=== PATIENT | male | born 1945 | race Caucasian/White ===

== ENCOUNTER 2018-05-23 08:09 | Outpatient (CLI) | payer MEDICARE ==
[2018-05-23 10:00] LABS: #Eosinphils 0.2 thou/uL (0.0-0.7); #Lymphocytes 1.7 thou/uL (1.20-3.40); #Monocytes 0.6 thou/uL (0.11-0.59); #Neutrophils 4.2 thou/uL (1.40-6.50); %Basophils 0.3 % (0.0-1.0); %Eosinophils 2.3 % (0.0-10.0); %Lymphocytes 25.6 % (21.0-51.0); %Monocytes 9.6 % (0.0-10.0); %Neutrophils 62.3 % (42.0-75.0); Hemoglobin 14.6 g/dL (14.0-18.0); Mean Corpuscular Volume 97.1 fL (78.0-98.0); Mean Platelet Volume 7.6 fL (7.4-10.4); Platelet Count 160 thou/uL (130-400); RBC Distribution Width 11.7 % (11.5-14.5); Red Blood Cell (RBC) Count 4.42 mill/uL (4.70-6.10); White Blood Cell (WBC) Count 6.7 thou/uL (4.8-10.8)
[2018-05-23 10:05] LABS: Prothrombin Time 12.9 SEC (12.0-14.7)
[2018-05-23 10:06] LABS: PTT 34.2 SEC (22.9-36.1)
[2018-05-23 10:20] LABS: Bilirubin Negative (Negative); Blood, Urine Negative (Negative); Clarity CLEAR (Clear); Glucose, Urine (Dipstick) 500 mg/dL (Negative); Leukocyte Negative (Negative); Nitrite Negative (Negative); Protein, Urine (Dipstick) Negative (Neg-Trace); Urobilinogen 0.2 mg/dL (0.2-1.0)
--- NOTE | 2018-05-23 10:20 | RAD ---
CHEST 2 VIEWS: History Preop. FINDINGS: No comparison. Cardiac silhouette and pulmonary vasculature are unremarkable. Mediastinum is midlin e. No lobar consolidation or evidence of pneumothorax. Calcified granulomata are consistent with he aled granulomatous disease. IMPRESSION: No acute cardiopulmonary abnormalities are demonstrated. POS: [facility]
[2018-05-23 10:21] LABS: Anion Gap 12 mmol/L (10-20); BUN (Urea Nitrogen) 17 mg/dL (8.4-25.7); Calc. Creatinine Clearance 0 mL/min (70-130); Calcium 9.1 mg/dL (7.8-10.44); Carbon Dioxide 25 mmol/L (23-31); Chloride 105 mmol/L (98-107); Estimated GFR-MDRD 85; Glucose 193 mg/dL (80-115); Potassium 4.2 mmol/L (3.5-5.1); Sodium 138 mmol/L (136-145)
[2018-05-23 10:23] LABS: Bacteria/HPF None Seen HPF (None Seen); Hyaline Casts/LPF 0-3 HYALINE CAST LPF (0-3 Hyaline); Pathc Cast-AUWi Flag 0.29 (0-2.49); RBC/HPF 0-3 HPF (0-3); Squamous Epithelial None Seen HPF (0-3); WBC/HPF 0-3 HPF (0-3)
== END 2018-05-23 08:10 | disposition home or self-care (01) ==
LOC: LABBT 08:09
PROVIDERS: ATTEND Urology
DX: Z01.818 Encounter for other preprocedural examination (principal); R97.20 Elevated prostate specific antigen [PSA]
CPT/HCPCS: 71046; 80048; 81001; 85025; 85610; 85730; 87086; 93005; 93010

== ENCOUNTER 2018-06-06 05:35 | Day surgery (SDC) | payer MEDICARE ==
[2018-05-23 08:48] VITALS: BMI 31.7
[2018-06-06] MEDS ORDERED: Sodium Chloride 0.9% 100 ML ONE (07:01)
[2018-06-06] MEDS ORDERED: cefTRIAXone\\ROCEPHIN 1 GM VIAL ONE (07:01)
[2018-06-06] MEDS ORDERED: Levofloxacin 500 mg/D5W 100 ml Premix Bag ONE (07:02)
[2018-06-06] MEDS ORDERED: Fentanyl 100 MCG/2 ML VIAL ONE ×2 (07:50)
[2018-06-06] MEDS ORDERED: Oxymetazoline HCl 0.05% ( 15 ML ) ONE (07:50)
[2018-06-06] MEDS ORDERED: Phenazopyridine HCl 97.5 MG TABLET ONE (09:44)
--- NOTE | 2018-06-06 10:33 | OP ---
DATE OF PROCEDURE: 06/06/2018 PREOPERATIVE DIAGNOSES: 1. A 72-year-old male with history of elevated PSA of 4.5, unremarkable JONATHON. 2. History of benign prostatic hypertrophy with obstructive urinary symptoms on Flomax b.i.d. POSTOPERATIVE DIAGNOSES: 1. A 72-year-old male with history of elevated PSA 4.5, unremarkable JONATHON. 2. History of benign prostatic hypertrophy with obstructive urinary symptoms on Flomax b.i.d. PROCEDURE: Flexible cystoscopy, transrectal ultrasound prostate biopsy 12 needle core. SURGEON: Chitra Mills D.O. ANESTHESIA: LMA. COMPLICATIONS: None apparent. SPECIMEN: Twelve core needle prostate biopsy. INTRAOPERATIVE FINDINGS: 1. Cystoscopy demonstrates moderate BPH due to bilobar hyperplasia, no significant evidence of intravesical median lobe. 2. Bilateral single system ureter. 3. Bilateral ureteral orifices approximately 5-6 mm proximal to the bladder neck. 4. Transrectal ultrasound without evidence of lesion. INDICATIONS FOR THE PROCEDURE AND HISTORY: Mr. Chapman is a 72-year-old male who [place]. He recently relocated from an outside region. He underwent previous cystoscopy for BPH workup. He continues to have obstructive urinary symptoms, has a postvoid residual of approximately 84 mL on our initial consultation. He is on Flomax b.i.d. The patient has been cleared by his video clerk to proceed with prostate biopsy with cessation of Plavix, has been transitioned to baby aspirin. Risks and complications including, but not limited to, bleeding, pain, infection, urosepsis, chronic pain, urinary retention and hematuria, hematospermia, blood per rectum requiring secondary procedure reviewed with patient in detail and he desired to proceed. DESCRIPTION OF THE PROCEDURE: After an informed consent is signed, the patient is taken to the operating room, placed in a supine position with the genital area prepped and draped in the usual surgical sterile fashion. A flexible cystoscopy was utilized. Broad-spectrum antibiotics were provided. Flexible cystoscopy demonstrated normal anterior and posterior urethra. The prostatic urethra demonstrated bilobar hyperplasia, moderately obstructing with no evidence of intravesical median lobe. The patient does have a left duplicated ureter on CT and upon entering the bladder, it appeared to have bilateral single system ureters. Left UO is somewhat more patulous than right UO. The UO' s are approximately 5-6 mm proximal to the bladder neck. No bladder lesion was appreciated. At this time, the cystoscope was removed and we did empty his bladder. Subsequently, the patient was placed in the left lateral decubitus position with pressure points padded and protected. A transrectal ultrasound probe was then placed, we measured the prostate demonstrating urethral length of 4.4, width of 5.5, height of 3.5 for a volume of 45.9 grams. No lesions were seen. At this time, a 12 core needle biopsy in a standard template was performed without significant issues. He tolerated the procedure well and transported to the recovery room in stable condition. He is advised to stay off his Plavix until followup appointment, he may take baby aspirin due to history of coronary artery disease. Continue Flomax b.i.d. He is discharged with ciprofloxacin for 3 days. NELSON
[2018-06-06] MEDS ORDERED: Lidocaine 1% PF 5 ML VIAL ONE (15:18)
[2018-06-06] MEDS ORDERED: Metoclopramide HCl 10 MG/2 ML VIAL ONE (15:18)
[2018-06-06] MEDS ORDERED: PROPOFOL 200 MG/20 ML VIAL ONE (15:18)
[2018-06-06] MEDS ORDERED: PHENYLEPHRINE-NS 100 MCG/ML 10 ML SYRINGE ONE ×2 (15:18)
[2018-06-06] MEDS ORDERED: Ondansetron HCl/PF 4 MG/2 ML Vial ONE (15:18)
== END 2018-06-06 11:55 | disposition home or self-care (01) ==
LOC: SDC 05:35
PROVIDERS: ATTEND Urology
PROC: 0VB03ZX Excision of Prostate, Percutaneous Approach, Diagnostic (ICD-10-PCS; principal; 2018-06-06)
PROC: 0TJB8ZZ Inspection of Bladder, Via Natural or Artificial Opening Endoscopic (ICD-10-PCS; 2018-06-06)
DX: C61 Malignant neoplasm of prostate (principal); E78.5 Hyperlipidemia, unspecified; I10 Essential (primary) hypertension; E11.9 Type 2 diabetes mellitus without complications; Z87.891 Personal history of nicotine dependence; Z79.02 Long term (current) use of antithrombotics/antiplatelets; Z79.899 Other long term (current) drug therapy
CPT/HCPCS: 88305; J0131; J0696; J1956; J2001; J2405; J2704; J2765; J3010; J7050

== ENCOUNTER 2018-08-14 08:39 | Outpatient (CLI) | payer MEDICARE ==
--- NOTE | 2018-08-14 10:32 | ULT ---
ULTRASOUND SCROTUM TESTICLES DOPPLER DUPLEX: HISTORY: N50.82 scrotal pain. TECHNIQUE: Griffin-scale evaluation of intrascrotal contents. Color flow Doppler and spectral waveform analysis of the testicles. FINDINGS: At the inferior aspect of the left scrotum, there is a varicocele (change in blood flow between valsa lva and release, of dilated, tortuous veins). In the contralateral right side, there is a varicocele at the groin. Bilateral testicles are normal in size and echogenicity. No solid mass lesion is identified. Bilatera l epididymal heads are within normal limits in size. No hydrocele. Symmetrical blood flow demonstrate d in both testicles. IMPRESSION: Bilateral varicoceles. ASAEL Moise POS: [facility]
== END 2018-08-14 08:40 | disposition home or self-care (01) ==
LOC: BICULT 08:39
PROVIDERS: ATTEND Urology
DX: N50.82 Scrotal pain (principal); R35.0 Frequency of micturition; I86.1 Scrotal varices; Z87.440 Personal history of urinary (tract) infections
CPT/HCPCS: 76870; 93976

== ENCOUNTER 2018-09-27 10:01 | Outpatient (CLI) | payer MEDICARE ==
[2018-09-27 11:56] LABS: Bilirubin Negative (Negative); Blood, Urine Negative (Negative); Clarity CLEAR (Clear); Glucose, Urine (Dipstick) Negative (Negative); Leukocyte Small (Negative); Nitrite Negative (Negative); PTT 32.5 SEC (22.9-36.1); Protein, Urine (Dipstick) Negative (Neg-Trace); Prothrombin Time 13.7 SEC (12.0-14.7); Specific Gravity, Urine 1.019 (1.002-1.036)
[2018-09-27 11:59] LABS: Bacteria/HPF None Seen HPF (None Seen); Hyaline Casts/LPF 0-3 HYALINE CAST LPF (0-3 Hyaline); RBC/HPF 0-3 HPF (0-3); Squamous Epithelial None Seen HPF (0-3); WBC/HPF 0-3 HPF (0-3)
== END 2018-09-27 10:02 | disposition home or self-care (01) ==
LOC: LABBT 10:01
PROVIDERS: ATTEND Urology
DX: Z01.818 Encounter for other preprocedural examination (principal); C61 Malignant neoplasm of prostate
CPT/HCPCS: 81001; 85610; 85730; 87086

== ENCOUNTER 2018-09-28 13:00 | Inpatient (IN) | payer MEDICARE ==
[2018-09-27 10:25] VITALS: BMI 32.1
[2018-10-10] MEDS ORDERED: KETAMINE 100 MG/ML (5ML VIAL) ONE (06:39)
[2018-10-10] MEDS ORDERED: Fentanyl 250 MCG/5 ML VIAL ONE (06:39)
[2018-10-10] MEDS ORDERED: Midazolam HCl 2 mg/2 ml Vial ONE (06:39)
[2018-10-10] MEDS ORDERED: Fentanyl 100 MCG/2 ML VIAL ONE ×2 (06:39→15:49)
[2018-10-10] MEDS ORDERED: Vecuronium 10 MG VIAL ONE ×2 (06:40→10:15)
[2018-10-10] MEDS ORDERED: Albumin 5% 500 ML ONE (06:40)
[2018-10-10] MEDS ORDERED: Phenylephrine HCL 10 MG/ML VIAL ONE (06:40)
[2018-10-10] MEDS ORDERED: Levofloxacin 500 mg/D5W 100 ml Premix Bag ONE (06:54)
[2018-10-10] MEDS ORDERED: Insulin Regular 300 UNITS/3 ML VIAL ONE (07:01)
[2018-10-10] MEDS ORDERED: ceFOXitin 1 GM VIAL ONE ×2 (08:10→14:09)
[2018-10-10] MEDS ORDERED: Metoclopramide HCl 10 MG/2 ML VIAL ONE (10:15)
[2018-10-10] MEDS ORDERED: Glycopyrrolate 0.2 MG/ML 5 ML SYRINGE ONE (10:15)
[2018-10-10] MEDS ORDERED: Ondansetron PF 4 MG/2 ML Vial ONE ×3 (10:15→14:46)
[2018-10-10] MEDS ORDERED: Dexamethasone 20 MG/5 ML VIAL ONE (10:15)
[2018-10-10] MEDS ORDERED: Lidocaine 1% PF 5 ML VIAL ONE (10:15)
[2018-10-10] MEDS ORDERED: Naloxone HCl 0.4 mg/ml Vial ONE (10:15)
[2018-10-10] MEDS ORDERED: PHENYLEPHRINE-NS 100 MCG/ML 10 ML SYRINGE ONE (10:15)
[2018-10-10] MEDS ORDERED: PROPOFOL 200 MG/20 ML VIAL ONE (10:15)
[2018-10-10] MEDS ORDERED: HYDROmorphone 2 MG/ML VIAL SLOW IVP PRN (14:19)
[2018-10-10] MEDS ORDERED: Promethazine HCl 25 MG/ML VIAL IM PRN (14:19)
[2018-10-10] MEDS ORDERED: Meperidine HCl/PF 25 MG/ML VIAL SLOW IVP PRN (14:19)
[2018-10-10] MEDS ORDERED: Promethazine HCl 25 MG/ML VIAL SLOW IVP PRN (14:19)
[2018-10-10] MEDS ORDERED: B & O ONE ×2 (14:58→15:00)
[2018-10-10] MEDS ORDERED: Zolpidem Tartrate 5 MG TAB PO PRN (15:28)
[2018-10-10] MEDS ORDERED: Acetaminophen 500 MG TAB PO PRN (15:28)
[2018-10-10] MEDS ORDERED: Dextrose 50% Abboject 50 ML SYRINGE SLOW IVP PRN (15:28)
[2018-10-10] MEDS ORDERED: HYDROcodone/Acetaminophen 10/325 mg Tablet PO PRN (15:28)
[2018-10-10] MEDS ORDERED: diphenhydrAMINE 50 MG/ML VIAL IVP PRN (15:28)
[2018-10-10] MEDS ORDERED: Morphine 4 MG/ML VIAL SLOW IVP PRN ×2 (15:28→16:00)
[2018-10-10] MEDS ORDERED: hydrALAZINE 20 MG/ML VIAL SLOW IVP PRN ×2 (15:28)
[2018-10-10] MEDS ORDERED: Dextrose 5% in Water 1,000 ML IV PRN (15:28)
[2018-10-10] MEDS ORDERED: Mag-Al 1200 mg/1200 mg/30 ML UDCUP PO PRN (15:28)
[2018-10-10] MEDS ORDERED: Sodium Chloride 0.9% 1,000 ML IV SCH (15:30)
[2018-10-10 16:27] LABS: #Lymphocytes 0.7 thou/uL (1.20-3.40); #Monocytes 0.5 thou/uL (0.11-0.59); #Neutrophils 11.5 thou/uL (1.40-6.50); %Eosinophils 0.2 % (0.0-10.0); %Lymphocytes 5.2 % (21.0-51.0); %Monocytes 4.2 % (0.0-10.0); %Neutrophils 90.4 % (42.0-75.0); Hemoglobin 14.4 g/dL (14.0-18.0); Mean Corpuscular HGB CONC 33.2 g/dL (32.0-36.0); Mean Corpuscular Hemoglobin 32.7 pg (27.0-31.0); Mean Corpuscular Volume 98.3 fL (78.0-98.0); Mean Platelet Volume 7.5 fL (7.4-10.4); Platelet Count 170 thou/uL (130-400); RBC Distribution Width 12.1 % (11.5-14.5); White Blood Cell (WBC) Count 12.7 thou/uL (4.8-10.8)
[2018-10-10] MEDS ORDERED: Bupivacaine HCl 0.5%/Epinephrine 1:200,000/PF 30 ml Vial ONE (16:44)
[2018-10-10 16:51] LABS: Anion Gap 14 mmol/L (10-20); BUN (Urea Nitrogen) 15 mg/dL (8.4-25.7); Calc. Creatinine Clearance 89 mL/min (70-130); Calcium 8.7 mg/dL (7.8-10.44); Carbon Dioxide 24 mmol/L (23-31); Chloride 106 mmol/L (98-107); Estimated GFR-MDRD 68; Glucose 240 mg/dL (83-110); Potassium 4.8 mmol/L (3.5-5.1); Sodium 139 mmol/L (136-145)
--- NOTE | 2018-10-10 17:04 | OP ---
DATE OF PROCEDURE: 10/10/2018 PRIMARY CARE PHYSICIAN: Dr. Goins. PREOPERATIVE DIAGNOSIS: A 73-year-old male with history of clinical T1c Pedro score 3+4 prostate cancer, PSA 4.5. POSTOPERATIVE DIAGNOSIS: A 73-year-old male with history of clinical T1c Jackson score 3+4 prostate cancer, PSA 4.5. PROCEDURES PERFORMED: Robotic-assisted laparoscopic radical prostatectomy, lysis of adhesions. OPERATIONS PROGRAM MANAGER: Michael Ozuna. ANESTHESIA: General. COMPLICATIONS: None apparent. ESTIMATED BLOOD LOSS: 150 mL. IV FLUIDS: 2500 mL and 500 of albumin. DRAINS: An 18-Singaporean 10 mL with 15 mL insufflated to gravity, #20 circular drain. INDICATIONS FOR PROCEDURE AND HISTORY: Mr. Chapman is a 73-year-old male with history of clinical T1c prostate cancer, Pedro 7 (3+4) with presenting PSA of 4.5, unremarkable JONATHON, found to have prostate cancer, presents for robotic-assisted laparoscopic radical prostatectomy. He presents for non-nerve sparing as he has positive perineural invasion on prostate biopsy. Metastatic workup is negative. The patient has been fully informed regarding alternatives of the procedure including active surveillance, watchful waiting, primary radiation therapy, cryotherapy, androgen deprivation therapy, various modality of radiation including brachytherapy. As he has pre-existing obstructive urinary symptoms, he desired to proceed with robotic-assisted laparoscopic radical prostatectomy. Possible conversion to open, as he has had multiple abdominal surgeries and prior history of UTI was reviewed with him in detail. Risks and complications including, but not limited to, bleeding, pain, infection, injury to adjacent organs, urosepsis, rectal injury requiring diverting colostomy, ureteral injury, urinary incontinence, PE, DVT, perioperative morbidity, mortality, chronic pain, neurovascular injury were reviewed with him in detail. All questions were answered to satisfaction and desired to proceed. He has been fully informed regarding possibility of multimodality therapy of margin-positive disease or biochemical recurrence. DESCRIPTION OF PROCEDURE: The patient had been formally identified, and underwent a TAP block in the preoperative area by anesthesia. The patient was then taken to the operating room, placed in supine position. Broad-spectrum antibiotics and bilateral CARROLL hose SCDs were provided. After general endotracheal anesthesia was administered, the patient was placed in supine position and the genital area was formally prepped and draped. He was placed in a modified lithotomy position in approximately 45-degree angle. We made sure that all pressure points were padded and protected at all times. After the patient was formally prepped and draped in the position as above, we used a Veress needle entry to obtain pneumoperitoneum. This was passed without significant issues, and appropriate pressure was obtained at 15 mmHg at a high flow low pressure. We made a 12-mm camera port incision just some underneath the umbilicus with an 11 blade, and the dilating trocar was passed. Surveillance of the intra-abdominal cavity demonstrated no evidence of bowel or vascular injury. He did have adhesions in the right lower quadrant due to his appendicitis. Therefore, we did not place our right robotic port until the adhesions were taken down. We placeed the robot ports on the left side of the abdomen, 8 mm portsx2 were placed under direct visualization. Once the ports were placed, we used EndoShears and bowel graspers to perform lysis of adhesions releasing the bowel contents adherent to the right lower quadrant anterior abdominal cavity. Some of the adhesions were quite dense and sharp dissection to perform lysis of adhesions and dropped the bowel down. At this time, we did place our 11 mm and 15 mm robot arms on the right mid to lower quadrant. a 5-mm port in the right upper quadrant. With all ports placed, the robot was docked. Laparoscopy at this time demonstrated the bowel contacts that were released demonstrated no evidence of bowel injury. We then retracted the bowel cephalad with the third robotic arm and approached the prostate in a posterior approach. The rectovesical pouch was identified. The area was quite narrow despite his wide pelvis. Using monopolar and bipolar instruments, we developed the posterior plane identifying the vas deferens bilaterally. He did have a significant amount of fat in this region, there was some venous oozing which was cauterized appropriately. As he had non-nerve sparing, we used cautery energy to mobilize the seminal vesicle and vas. Bilateral vas was divided with monopolar and bipolar energy. The seminal vesicles were sharply dissected and delivered. After the mobilization of the bilateral vas and seminal vesicles, Denonvilliers fascia was developed posteriorly to the level of the mid to apical prostate. At this time we proceeded to mobilize the bladder. He had an obliterated left medial umbilical ligament. Just lateral to right medial umbilical ligament on the , plane for the bladder to be mobilized. The pubic arch was identified. This was carried down to the medial side. As left lateral median umbilical ligament region as it was obliterated., We opened at the level symmetric to the right medial ligament. This was taken down again developing a pubic arch inferiorly. The bladder was then completely dropped after we divided the medial ligament with bipolar energy. The bladder was then completely mobilized and dropped, and we developed the endopelvic fascia. Using bipolar [place] and monopolar scissors, we sharply and bluntly developed the endopelvic fascia, releasing the levator ani muscle off the lateral aspect of the prostate. The puboprostatic ligament was identified and isolated. This was divided with bipolar energy and scissors. After appropriate mobilization of the endopelvic fascia and the puboprostatic ligament divided; using robotic stapler, dorsal vein complex was stapled with good hemostasis. There was minor backbleeding, however , this was minimal. He did have significant preprostatic fat. This was developed using our bipolar and monopolar energy and sent as a specimen. The area of the bladder neck was identified and using monopolar scissors, we developed the prostate-vesicle junction. His prostate was moderate in size, we did enter the prostate-vesicle junction at the level of the bladder neck. Therefore, a bladder neck sparing was not performed. We identified the bladder neck appropriately, and developed a good bladder neck tissue. His bladder neck was somewhat wide, however, not significantly wide enough to be of concern. At this time, the prostate-vesicle junction was completely divided using monopolar and bipolar energy, obtaining hemostasis of the lateral pedicles. The seminal vesicles and the vas deferens were then retracted that we developed our posterior approach through the anterior aspect of our division of the prostate-vesicle junction. The lateral pedicles of the prostate were then further divided using a vessel sealer. Care was taken not to use the vessel sealer at the level of the apex of the prostate. By dividing the lateral attachments, we were able to mobilize the apical prostate off the rectum more cephalad. We used vessel sealer toward the mid prostate and toward the apex of the prostate, used bipolar and scissors to divide the apex of the prostate off the rectum. The dorsal vein complex was then formally divided using bipolar and monopolar scissors. The urethra was sharply developed. The urethra was then transected identifying the Wadsworth. The rectal urethralis muscle was somewhat adherent; however, using sharp dissection, we mobilized off the rectum. With the prostate completely divided, it was left in the left upper quadrant for retrieval at a later point. There was some venous oozing from the lateral pedicle regions; although, a taxpeq-pg-pnnzo stitch was placed with 2-0 Vicryl. At this time, we reconstructed our bladder neck using 2-0 Vicryl on a SH needle. Using a zektxu-xq-hujty, we closed the bladder neck. After one ydpafw-qb-fukce stitch, the bladder neck was patent enough and wide enough to perform our vesicourethral anastomosis. 2-0 Vicryl on a SH needle was passed to perform a Will stitch reapproximating our bladder neck to the rectal urethralis aligning our urethra to the bladder neck. Using a 2-0 V-Loc stitch, we reapproximated the urethra in a continuous fashion. An 18-Singaporean Wadsworth catheter was able to be passed without any resistance, and 15 mL of sterile water was insufflated. We leak tested the anastomosis, which demonstrated no obvious leak of concern. Floseal was placed prior to performing our anastomosis at the level of the lateral pedicles on top of the rectum well away from our anastomosis and the bladder neck. Floseal was then placed at the level of the urethrovesical junction. A # 20 circular drain was placed through our 8-mm robotic port. Specimen was delivered through an EndoCatch and delivered through our camera port. The fascia of our camera port and specimen delivery were closed with 2-0 Vicryl in a figure-of- eight fashion, and skin of the camera port delivery site, fascia was closed of the camera port using 2-0 Vicryl in a niyqts-hl-kvsuj. Using Brissaon and a 2-0 Vicryl needle, we closed our fascia of the 15 mm and 11 mm assistant department manager port. The skin was closed with 4-0 Maxon in a continuous fashion, and he tolerated the procedure well. Dermabond was placed at the skin site. The patient transported to the recovery room and extubated in stable condition. Job ID: [id number] [facility]
[2018-10-10] MEDS ORDERED: Cyclobenzaprine 10 MG TAB PO SCH (17:30)
[2018-10-10] MEDS: Dextrose 5 % And 0.9 % NaCl 1,000 ML IV SCH (19:02)
[2018-10-10] MEDS: Docusate 100 MG CAP PO SCH (20:42)
[2018-10-10] MEDS: Metoprolol Tartrate 25 MG TAB PO SCH (20:42)
[2018-10-10] MEDS: Famotidine/PF 20 mg/2ml Vial SLOW IVP SCH (20:43)
[2018-10-10] MEDS ORDERED: Famotidine 20 MG TAB PO PRN (21:00)
[2018-10-10] MEDS: Insulin Regular 300 UNITS/3 ML VIAL SC PRN (23:16)
[2018-10-11] MEDS: Dextrose 5 % And 0.9 % NaCl 1,000 ML IV SCH (03:53)
[2018-10-11] MEDS: HYDROcodone/Acetaminophen 10/325 mg Tablet PO PRN ×3 (05:39→16:34)
[2018-10-11] MEDS: Insulin Regular 300 UNITS/3 ML VIAL SC PRN (06:33)
[2018-10-11 06:58] LABS: #Lymphocytes 1.3 thou/uL (1.20-3.40); #Monocytes 1.3 thou/uL (0.11-0.59); #Neutrophils 6.8 thou/uL (1.40-6.50); %Basophils 0.1 % (0.0-1.0); %Eosinophils 0.2 % (0.0-10.0); %Lymphocytes 13.9 % (21.0-51.0); %Monocytes 14.2 % (0.0-10.0); %Neutrophils 71.7 % (42.0-75.0); Hemoglobin 13.6 g/dL (14.0-18.0); Mean Corpuscular HGB CONC 32.5 g/dL (32.0-36.0); Mean Corpuscular Hemoglobin 32.6 pg (27.0-31.0); Mean Platelet Volume 7.6 fL (7.4-10.4); Platelet Count 165 thou/uL (130-400); RBC Distribution Width 12.1 % (11.5-14.5); Red Blood Cell (RBC) Count 4.17 mill/uL (4.70-6.10); White Blood Cell (WBC) Count 9.4 thou/uL (4.8-10.8)
[2018-10-11 07:04] LABS: Anion Gap 11 mmol/L (10-20); BUN (Urea Nitrogen) 9 mg/dL (8.4-25.7); Calc. Creatinine Clearance 114 mL/min (70-130); Calcium 8.6 mg/dL (7.8-10.44); Carbon Dioxide 26 mmol/L (23-31); Chloride 108 mmol/L (98-107); Estimated GFR-MDRD Greater than 90; Glucose 179 mg/dL (83-110); Potassium 4.1 mmol/L (3.5-5.1); Sodium 141 mmol/L (136-145)
[2018-10-11] MEDS ORDERED: Bisacodyl 5 MG TAB PO ONE (08:01)
--- NOTE | 2018-10-11 08:29 | PRG ---
DATE OF SERVICE: 10/11/2018 SUBJECTIVE: The patient resting comfortably, at bedside. Denies nausea or vomiting. States that he has good appetite. No flatus overnight. Has some right shoulder stiffness, however, this is mild. He does relate baseline right shoulder arthritis, which has been present before. Denies numbness/weakness, tingling of the upper or lower extremities. Denies fever or chills. PHYSICAL EXAMINATION: VITAL SIGNS: Stable. His temperature is 97, heart rate 95, respiratory rate 18 , oxygen saturation 93%, blood pressure 121/71. I's and O's; 1970 in and 3150 out. Urine output is siomara with some sediment. p.o. intake 720. DARIO output 40 mL of sanguineous output. GENERAL: The patient is in no acute distress. LUNGS: Clear. ABDOMEN: Soft, protuberant, mildly distended. Incisions are clean, dry, and intact. Bowel sounds are active. EXTREMITIES: No cyanosis, clubbing, or edema. Equal strength and symmetric motion of all extremities. No calf tenderness is appreciated. PERTINENT LABORATORY DATA: White count 9.4, hemoglobin 13.6, platelet 165. BUN 9, creatinine 0.8, sodium 141, and potassium 4.1. IMPRESSION AND PLAN: Mr. Chapman is a 73-year-old male with clinical T1c, Range score 3+4 prostate cancer, postop day #1, robotic assisted laparoscopic radical prostatectomy. The patient is doing well with minimal narcotic use. I will Hep-Lock his IV, PT consultation for walking program, out of bed assist given his age and baseline radiculopathy and arthritis. I did provide him one dose of suppository this morning to stimulate his bowel. The patient advised regarding aggressive mobilization out of bed, dorsi plantar flexion while in bed. will keep the patient on clear liquids for now . will reassess the patient's parameters in the afternoon and consider advancing his diet. Job ID: [id number] [facility]
[2018-10-11] MEDS: glipiZIDE 5 MG TAB PO SCH (08:46)
[2018-10-11] MEDS: metFORMIN 500 MG TAB PO SCH ×2 (08:47→16:35)
[2018-10-11] MEDS: Docusate 100 MG CAP PO SCH ×2 (08:48→21:43)
[2018-10-11] MEDS: Famotidine/PF 20 mg/2ml Vial SLOW IVP SCH (08:48)
[2018-10-11] MEDS: Atorvastatin Calcium 40 MG TAB PO SCH (08:48)
[2018-10-11] MEDS: Lisinopril 5 MG TAB PO SCH (08:48)
[2018-10-11] MEDS: Multivit, Therapeutic 1 TAB PO SCH (08:49)
[2018-10-11] MEDS: Metoprolol Tartrate 25 MG TAB PO SCH ×2 (08:49→21:46)
[2018-10-11] MEDS: Zinc Sulfate 220 MG CAP PO SCH (08:49)
[2018-10-11] MEDS: Famotidine 20 MG TAB PO SCH (21:44)
[2018-10-12] MEDS: HYDROcodone/Acetaminophen 10/325 mg Tablet PO PRN ×2 (02:19→09:10)
[2018-10-12 07:00] LABS: #Eosinphils 0.1 thou/uL (0.0-0.7); #Lymphocytes 1.8 thou/uL (1.20-3.40); %Basophils 0.2 % (0.0-1.0); %Eosinophils 1.3 % (0.0-10.0); %Lymphocytes 20.2 % (21.0-51.0); %Monocytes 11.3 % (0.0-10.0); Hemoglobin 13.4 g/dL (14.0-18.0); Mean Corpuscular HGB CONC 32.2 g/dL (32.0-36.0); Mean Corpuscular Hemoglobin 31.8 pg (27.0-31.0); Mean Corpuscular Volume 98.8 fL (78.0-98.0); Mean Platelet Volume 7.8 fL (7.4-10.4); Platelet Count 168 thou/uL (130-400); RBC Distribution Width 12.2 % (11.5-14.5)
[2018-10-12 07:17] LABS: Anion Gap 11 mmol/L (10-20); BUN (Urea Nitrogen) 10 mg/dL (8.4-25.7); Calc. Creatinine Clearance 120 mL/min (70-130); Calcium 8.7 mg/dL (7.8-10.44); Carbon Dioxide 25 mmol/L (23-31); Chloride 105 mmol/L (98-107); Estimated GFR-MDRD Greater than 90; Glucose 103 mg/dL (83-110); Sodium 137 mmol/L (136-145)
[2018-10-12] MEDS ORDERED: Bisacodyl 10 MG SUPP PR SCH (08:00)
--- NOTE | 2018-10-12 08:34 | PRG ---
DATE OF SERVICE: 10/12/2018 SUBJECTIVE: The patient doing well, pain adequately controlled with Alpine p.r.n. States that the pain is mild. Has good appetite, denies passing flatus thus far. OBJECTIVE: VITAL SIGNS: Stable. He is afebrile. I's and O's; 5890 in and 6395 out. DARIO 120 over the last 24 hours, serosanguineous. Urine output siomara. GENERAL: The patient is in no acute distress. LUNGS: Clear. ABDOMEN: Bowel sounds are active. Incision is clean, dry, and intact with no discharge. No rigidity. No rebound. DARIO adequately secured. Urine output again demonstrating siomara yellow urine. However, when the patient does move, there is a hematuria component. EXTREMITIES: No cyanosis, clubbing, or edema. PERTINENT LABORATORY DATA: White count stable at 9, hemoglobin 13.4, platelet 168. BMP profile is unremarkable. Creatinine 0.79. Pathology is pending. IMPRESSION AND PLAN: Mr. Chapman is a 73-year-old diabetic male, with history of clinical T1c Alma score 3+4 prostate cancer, postop day #2, status post robotic-assisted laparoscopic radical prostatectomy. He is hep-locked, tolerating clears. He has not yet passed flatus, however, has active bowel sounds, will initiate diabetic diet and monitor for tolerance. The patient is encouraged to be out of bed, he has been ambulating without significant issues. He continues to perform dorsi and plantar flexion while in bed with bilateral CARROLL hose SCDs. As there is some evidence of hematuria component from the Wadsworth catheter, I will hold his Lovenox. He is again encouraged to be out of bed aggressively. The patient clinically stable. Discharged when tolerating regular diet, and ideally passing flatus. Job ID: [id number] [facility]
[2018-10-12] MEDS: glipiZIDE 5 MG TAB PO SCH (09:09)
[2018-10-12] MEDS: Zinc Sulfate 220 MG CAP PO SCH (09:10)
[2018-10-12] MEDS: metFORMIN 500 MG TAB PO SCH ×2 (09:15→17:09)
[2018-10-12] MEDS: Famotidine 20 MG TAB PO SCH ×2 (09:16→21:16)
[2018-10-12] MEDS: Docusate 100 MG CAP PO SCH ×2 (09:16→21:16)
[2018-10-12] MEDS: Atorvastatin Calcium 40 MG TAB PO SCH (09:16)
[2018-10-12] MEDS: Multivit, Therapeutic 1 TAB PO SCH (09:16)
[2018-10-12] MEDS: Metoprolol Tartrate 25 MG TAB PO SCH ×2 (09:16→21:15)
[2018-10-12] MEDS: Lisinopril 5 MG TAB PO SCH (09:17)
[2018-10-13 07:17] LABS: #Eosinphils 0.2 thou/uL (0.0-0.7); #Lymphocytes 1.9 thou/uL (1.20-3.40); #Monocytes 0.8 thou/uL (0.11-0.59); #Neutrophils 4.5 thou/uL (1.40-6.50); %Basophils 0.1 % (0.0-1.0); %Eosinophils 2.7 % (0.0-10.0); %Lymphocytes 26.2 % (21.0-51.0); %Monocytes 10.4 % (0.0-10.0); %Neutrophils 60.5 % (42.0-75.0); Hemoglobin 13.4 g/dL (14.0-18.0); Mean Corpuscular HGB CONC 33.4 g/dL (32.0-36.0); Mean Corpuscular Hemoglobin 32.9 pg (27.0-31.0); Mean Corpuscular Volume 98.5 fL (78.0-98.0); Mean Platelet Volume 7.6 fL (7.4-10.4); Platelet Count 165 thou/uL (130-400); RBC Distribution Width 12.2 % (11.5-14.5); Red Blood Cell (RBC) Count 4.08 mill/uL (4.70-6.10); White Blood Cell (WBC) Count 7.4 thou/uL (4.8-10.8)
[2018-10-13 07:40] LABS: Anion Gap 10 mmol/L (10-20); BUN (Urea Nitrogen) 12 mg/dL (8.4-25.7); Calc. Creatinine Clearance 126 mL/min (70-130); Calcium 8.6 mg/dL (7.8-10.44); Carbon Dioxide 30 mmol/L (23-31); Chloride 103 mmol/L (98-107); Estimated GFR-MDRD Greater than 90; Glucose 84 mg/dL (83-110); Potassium 3.7 mmol/L (3.5-5.1); Sodium 139 mmol/L (136-145)
[2018-10-13] MEDS: glipiZIDE 5 MG TAB PO SCH (08:49)
[2018-10-13] MEDS: Multivit, Therapeutic 1 TAB PO SCH (08:51)
[2018-10-13] MEDS: Atorvastatin Calcium 40 MG TAB PO SCH (08:51)
[2018-10-13] MEDS: metFORMIN 500 MG TAB PO SCH (08:51)
[2018-10-13] MEDS: Famotidine 20 MG TAB PO SCH (08:52)
[2018-10-13] MEDS: Docusate 100 MG CAP PO SCH (08:54)
[2018-10-13] MEDS: Lisinopril 5 MG TAB PO SCH (08:54)
[2018-10-13] MEDS: Metoprolol Tartrate 25 MG TAB PO SCH (08:54)
[2018-10-13] MEDS: Zinc Sulfate 220 MG CAP PO SCH (08:55)
[2018-10-13 11:44] VITALS: BP 101/62; TEMP 97.9
--- NOTE | 2018-10-14 03:53 | DIS ---
DATE OF ADMISSION: 10/10/2018 DATE OF DISCHARGE: 10/13/2018 DISPOSITION: Home with good self-care, home health. CONDITION: Stable. DISCHARGE MEDICATIONS: The patient is to resume his diabetic hypertensive medication. May resume his baby aspirin, will hold Plavix until followup appointment. New prescriptions for: 1. Myrbetriq 50 mg one p.o. daily, #30. 2. [place] 5/325 one to two p.o. q.6 to 8 hours p.r.n. for severe pain, #40. 3. Colace 100 mg 1 p.o. b.i.d. p.r.n. Pathology pending. PROCEDURE: Robotic-assisted laparoscopic radical prostatectomy. BRIEF HOSPITAL COURSE: Mr. Chapman is a pleasant 73-year-old male who presented for clinical T1c prostate cancer, Doole sum 3+4, with history of severe BPH symptoms, previous history of UTI. The patient underwent formal workup demonstrating no evidence of metastatic disease, he declined primary radiation treatment. Cardiac clearance is in chart, he underwent robotic-assisted laparoscopic radical prostatectomy on October 10 uneventfully. Blood loss was minimal. He did well postop, his CBC and renal function stable throughout postoperative period. DARIO creatinine was obtained prior to removal this morning demonstrating no evidence of leak. He is passing gas, tolerating diet without significant issues. He feels comfortable going home today. He has had multiple bowel movements overnight and feels comfortable going home. CONDITION: Stable. FOLLOWUP: followup appointment next October 17 at 11:15 a.m. DISCHARGE INSTRUCTIONS: Wadsworth catheter to gravity leg bag. Advised regarding no tension, kinking of urethral Wadsworth catheter, no heavy lifting, strenuous activities, straddling activity advised. Job ID: [id number] [facility]
== END 2018-10-13 11:48 | disposition home health service (06) | DRG 708 ==
LOC: SURG A 10-10 05:34
PROVIDERS: ADMIT Urology; ATTEND Urology
PROC: 0VT04ZZ Resection of Prostate, Percutaneous Endoscopic Approach (ICD-10-PCS; principal; 2018-10-10)
PROC: 0VT34ZZ Resection of Bilateral Seminal Vesicles, Percutaneous Endoscopic Approach (ICD-10-PCS; 2018-10-10)
PROC: 0VTQ4ZZ Resection of Bilateral Vas Deferens, Percutaneous Endoscopic Approach (ICD-10-PCS; 2018-10-10)
PROC: 0DNE4ZZ Release Large Intestine, Percutaneous Endoscopic Approach (ICD-10-PCS; 2018-10-10)
PROC: 8E0W4CZ Robotic Assisted Procedure of Trunk Region, Percutaneous Endoscopic Approach (ICD-10-PCS; 2018-10-10)
DX: C61 Malignant neoplasm of prostate (principal); E11.9 Type 2 diabetes mellitus without complications; K66.0 Peritoneal adhesions (postprocedural) (postinfection); I10 Essential (primary) hypertension; E78.5 Hyperlipidemia, unspecified; I25.10 Atherosclerotic heart disease of native coronary artery without angina pectoris; Q62.5 Duplication of ureter; Z87.891 Personal history of nicotine dependence; Z88.0 Allergy status to penicillin; Z79.84 Long term (current) use of oral hypoglycemic drugs; Z79.02 Long term (current) use of antithrombotics/antiplatelets; Z79.82 Long term (current) use of aspirin; Z79.899 Other long term (current) drug therapy; Z95.5 Presence of coronary angioplasty implant and graft
CPT/HCPCS: 36415; 36416; 80048; 82570; 85025; 86850; 86900; 86901; 88305; 88309; J0131; J0670; J0694; J1100; J1815; J1956; J2001; J2250; J2310; J2370; J2405; J2704; J2765; J3010; J3490; P9045; S0028

== ENCOUNTER 2018-10-08 10:01 | Outpatient (CLI) | payer MEDICARE | END 2018-10-08 10:02 | disposition home or self-care (01) | LOC: LABBT 10:01 | PROVIDERS: ATTEND Urology | DX: Z01.812 Encounter for preprocedural laboratory examination (principal); C61 Malignant neoplasm of prostate | CPT/HCPCS: 86850; 86900; 86901 ==

== ENCOUNTER 2018-10-25 07:19 | Outpatient (CLI) | payer MEDICARE ==
[2018-10-25] MEDS ORDERED: ISOVUE-370 76%-LOCM 1 ML ONE (07:53)
--- NOTE | 2018-10-25 11:12 | RAD ---
CYSTOGRAM: HISTORY: A 73-year-old male with a history of prostatectomy 2 weeks ago. FINDINGS: A cystogram was performed following the instillation of 260 mL water-soluble iodinated contrast into the urinary bladder via indwelling Wadsworth catheter. There is unobstructed filling of the urinary bladder. There is mild irregularity of the urinary blad glenroy wall likely due to bowel wall hypertrophy. There is extravasation of contrast at the base of the neck to the left of midline. A small amount of residual contrast is seen on the post-drainage images. IMPRESSION: Leak from the bladder neck. Discussed over the telephone with Dr. Chitra Mills at 9:04 a.m. CODE TANISHA POS: DB
== END 2018-10-25 07:20 | disposition home or self-care (01) ==
LOC: RAD 07:19
PROVIDERS: ATTEND Urology
DX: C61 Malignant neoplasm of prostate (principal)
CPT/HCPCS: 51600; 74430; Q9966

== ENCOUNTER 2018-11-01 08:04 | Outpatient (CLI) | payer MEDICARE ==
--- NOTE | 2018-11-01 10:35 | RAD ---
CYSTOGRAM: HISTORY: Prostate cancer. Bladder leak. COMPARISON: 10/25/2018. EXPOSURE: 0.8 minutes. 24.765 uGy cm*^cm2. 150 mL of contrast was administered. FINDINGS: Initial pipe tester radiograph demonstrates an unremarkable AP pelvic view. A total of 150 mL of contrast was administered. Contrast opacifies the bladder. There is evidence o f a small leak on the posterior left aspect of the neck of the bladder. The degree of leak has sligh tly decreased. Post evacuation images demonstrate a small amount of residual contrast in the bladder. Contrast is a lso noted at the level of the leak. IMPRESSION: Persistent but decreased leak involving the neck of the bladder. Results of the study were discussed with Dr. Mills 11/01/2018 at 9:27 a.m. DARYL GARAY POS: DB
== END 2018-11-01 08:05 | disposition home or self-care (01) ==
LOC: RAD 08:04
PROVIDERS: ATTEND Urology
DX: C61 Malignant neoplasm of prostate (principal); R32 Unspecified urinary incontinence
CPT/HCPCS: 51600; 74430

== ENCOUNTER 2019-12-02 08:54 | Outpatient (CLI) | payer MEDICARE ==
--- NOTE | 2019-12-02 10:37 | CT ---
CT abdomen and pelvis with IV contrast HISTORY: Abdomen pain. COMPARISON: 04/17/2018. FINDINGS: Mild parenchymal scarring at the lung bases. Calcification of the pleura is evident within the inferior aspect of each partially visualized hemithorax. Calcified granulomata of the spleen consistent with healed granulomatous disease. Prominent calcifica tion throughout the arterial structures. Gallbladder is surgically absent. 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 Fatty infiltration of the antral wall of the stomach may represent a small lipoma. No bowel inflammation evident. Appendix not visualized and may be surgically absent. There are degene rative changes throughout the lumbar spine IMPRESSION : No acute abnormalities are demonstrated to explain abdominal pain. Atherosclerosis. Evidence of asbestos related pleural disease. Chronic-type findings are stable.
[2019-12-02] MEDS ORDERED: Iopamidol 370 76% 100 ML VIAL ONE (14:35)
== END 2019-12-02 08:55 | disposition home or self-care (01) ==
LOC: BICCT 08:54 → MERGE 09:30
PROVIDERS: ATTEND Nurse Practitioner Family
DX: R10.84 Generalized abdominal pain (principal); J92.0 Pleural plaque with presence of asbestos; I70.90 Unspecified atherosclerosis
CPT/HCPCS: 74177; Q9967

== ENCOUNTER 2020-07-08 09:34 | Outpatient (CLI) | payer MEDICARE ==
--- NOTE | 2020-07-08 11:45 | CT ---
CT ABDOMEN AND PELVIS WITHOUT CONTRAST USING STONE PROTOCOL: Date: 07/08/2020 HISTORY: Right lower quadrant abdominal pain. Duplicated left ureter. History of kidney stones. COMPARISON: 12/02/2019. FINDINGS: Absence of oral and IV contrast reduces the sensitivity of exam, particularly for evaluation of solid organs and bowel. Calcified pleural plaques are again seen. The patient is post cholecystectomy. There is fatty infiltr ation of the liver and there are calcified granulomas in the spleen. No calculi seen in the kidneys, ureters, or the urinary bladder. No hydroureteronephrosis noted on ei ther side. No free air or free fluid is seen in the abdomen or pelvis. There are vascular calcifications without evidence of aneurysmal dilatation of the abdominal aorta. There are degenerative changes in the spin e. The small bowel loops are not abnormally dilated. A small lipoma in the gastric antrum is again se en. IMPRESSION: No CT evidence of urinary tract calculi or obstruction. POS: OFF
== END 2020-07-08 09:35 | disposition home or self-care (01) ==
LOC: BICCT 09:34
PROVIDERS: ATTEND Urology
DX: R10.31 Right lower quadrant pain (principal); Q62.5 Duplication of ureter; Z87.442 Personal history of urinary calculi
CPT/HCPCS: 74176

== ENCOUNTER 2020-12-22 15:02 | Outpatient (CLI) | payer MEDICARE | END 2020-12-22 15:03 | disposition home or self-care (01) | LOC: BICMRI 15:02 | PROVIDERS: ATTEND Family Medicine | DX: M54.41 Lumbago with sciatica, right side (principal); M47.816 Spondylosis without myelopathy or radiculopathy, lumbar region; M25.78 Osteophyte, vertebrae | CPT/HCPCS: 72148 ==

== ENCOUNTER 2021-01-27 13:06 | Outpatient (CLI) | payer MEDICARE | END 2021-01-27 13:07 | disposition home or self-care (01) | LOC: TBSIIMAG 13:06 | PROVIDERS: ATTEND Family Medicine | DX: M54.14 Radiculopathy, thoracic region (principal); R60.0 Localized edema | CPT/HCPCS: 72146 ==

== ENCOUNTER 2021-02-22 11:40 | Outpatient (CLI) | payer MEDICARE | END 2021-02-22 11:41 | disposition home or self-care (01) | LOC: BICRAD 11:40 | PROVIDERS: ATTEND Family Medicine | DX: M51.9 Unspecified thoracic, thoracolumbar and lumbosacral intervertebral disc disorder (principal); M47.814 Spondylosis without myelopathy or radiculopathy, thoracic region | CPT/HCPCS: 72070 ==

== ENCOUNTER 2022-02-24 22:42 | Inpatient (IN) | payer MEDICARE ==
[2022-02-25 00:08] LABS: #Eosinphils 0.1 thou/uL (0.0-0.7); #Lymphocytes 2.2 thou/uL (1.20-3.40); #Monocytes 0.7 thou/uL (0.11-0.59); #Neutrophils 4.1 thou/uL (1.40-6.50); %Basophils 0.3 % (0.0-1.0); %Eosinophils 1.6 % (0.0-10.0); %Monocytes 10.3 % (0.0-10.0); %Neutrophils 56.8 % (42.0-75.0); Hemoglobin 14.6 g/dL (14.0-18.0); Mean Corpuscular Hemoglobin 33.2 pg (27.0-31.0); Mean Corpuscular Volume 97.5 fL (78.0-98.0); Mean Platelet Volume 7.3 fL (7.4-10.4); Platelet Count 171 thou/uL (130-400); RBC Distribution Width 12.3 % (11.5-14.5); Red Blood Cell (RBC) Count 4.41 mill/uL (4.70-6.10); White Blood Cell (WBC) Count 7.1 thou/uL (4.8-10.8)
[2022-02-25 00:40] LABS: ALT (SGPT) 42 U/L (8-55); AST (SGOT) 25 U/L (5-34); Alkaline Phosphatase 124 U/L (40-110); Anion Gap 15 mmol/L (10-20); BUN (Urea Nitrogen) 16 mg/dL (8.4-25.7); Bilirubin, Total 0.5 mg/dL (0.2-1.2); Calc. Creatinine Clearance 0 mL/min (70-130); Calcium 9.2 mg/dL (7.8-10.44); Carbon Dioxide 26 mmol/L (23-31); Chloride 103 mmol/L (98-107); Globulin 2.9 g/dL (2.4-3.5); Glucose 106 mg/dL (83-110); Potassium 3.8 mmol/L (3.5-5.1); Protein, Total 6.9 g/dL (5.8-8.1); Sodium 140 mmol/L (136-145)
[2022-02-25 03:50] LABS: Troponin I Less than 0.010 ng/mL (< 0.028)
[2022-02-25 03:57] VITALS: BMI 35.1
[2022-02-25] MEDS ORDERED: Ondansetron ODT 4 MG TAB SL PRN ×2 (04:00→04:07)
[2022-02-25] MEDS ORDERED: Acetaminophen 325 MG TAB PO PRN ×2 (04:00→04:07)
[2022-02-25] MEDS ORDERED: Ondansetron PF 4 MG/2 ML Vial IVP PRN (04:00)
[2022-02-25] MEDS ORDERED: Nitroglycerin 0.4 MG TAB (25 Tab Bottle) SL PRN (04:07)
[2022-02-25] MEDS ORDERED: Aspirin Chewable 81 MG TAB PO SCH (04:30)
[2022-02-25] MEDS ORDERED: Sodium Chloride 0.9% 1,000 ML IV SCH (04:45)
[2022-02-25 05:10] LABS: Troponin I Less than 0.010 ng/mL (< 0.028)
[2022-02-25 05:12] LABS: Hemoglobin A1c 7.4 % (4.0-6.0)
[2022-02-25] MEDS: Nitroglycerin 2% Ointment 1 INCH/1 GM Packet TOP SCH ×3 (05:49→20:39)
[2022-02-25] MEDS: Aspirin Chewable 81 MG TAB PO SCH (08:08)
[2022-02-25] MEDS: Lisinopril 5 MG TAB PO SCH (08:09)
[2022-02-25] MEDS: Famotidine 20 MG TAB PO SCH ×2 (08:09→20:36)
[2022-02-25] MEDS: Clopidogrel Bisulfate 75 MG TAB PO SCH (08:09)
[2022-02-25] MEDS: Heparin 5,000 UNITS/ML VIAL SC SCH ×3 (08:10→20:38)
[2022-02-25] MEDS: Tamsulosin HCl 0.4 MG CAP PO SCH ×2 (08:10→20:36)
[2022-02-25 09:05] LABS: Troponin I Less than 0.010 ng/mL (< 0.028)
[2022-02-25] MEDS ORDERED: Indomethacin 75 mg SR Capsule PO SCH (13:30)
[2022-02-25] MEDS: Metoprolol Tartrate 25 MG TAB PO SCH (20:36)
[2022-02-25] MEDS: Atorvastatin Calcium 40 MG TAB PO SCH (20:36)
[2022-02-26] MEDS: Nitroglycerin 2% Ointment 1 INCH/1 GM Packet TOP SCH ×3 (05:45→21:01)
[2022-02-26] MEDS ORDERED: Regadenoson 0.4 MG/5 ML SYRINGE ONE (10:35)
[2022-02-26] MEDS: Famotidine 20 MG TAB PO SCH ×2 (11:51→21:00)
[2022-02-26] MEDS: Aspirin Chewable 81 MG TAB PO SCH (11:51)
[2022-02-26] MEDS: Clopidogrel Bisulfate 75 MG TAB PO SCH (11:51)
[2022-02-26] MEDS: Indomethacin 75 mg SR Capsule PO SCH ×2 (11:52→21:00)
[2022-02-26] MEDS: Lisinopril 5 MG TAB PO SCH (11:53)
[2022-02-26] MEDS: Metoprolol Tartrate 25 MG TAB PO SCH ×2 (11:53→21:00)
[2022-02-26] MEDS: Tamsulosin HCl 0.4 MG CAP PO SCH ×2 (11:54→21:00)
[2022-02-26] MEDS: Heparin 5,000 UNITS/ML VIAL SC SCH ×3 (11:58→21:02)
[2022-02-26] MEDS ORDERED: Dextrose 50% Abboject 50 ML SYRINGE SLOW IVP PRN (12:22)
[2022-02-26] MEDS ORDERED: Dextrose 5% in Water 1,000 ML IV PRN (12:22)
[2022-02-26] MEDS: HumaLOG 300 UNITS/3 ML VIAL SC PRN ×2 (17:24→21:04)
[2022-02-26] MEDS: Atorvastatin Calcium 40 MG TAB PO SCH (21:00)
[2022-02-27] MEDS: Nitroglycerin 2% Ointment 1 INCH/1 GM Packet TOP SCH ×3 (06:00→21:43)
[2022-02-27] MEDS: HumaLOG 300 UNITS/3 ML VIAL SC PRN ×2 (06:09→17:39)
[2022-02-27] MEDS: Famotidine 20 MG TAB PO SCH ×2 (08:39→21:03)
[2022-02-27] MEDS: Aspirin Chewable 81 MG TAB PO SCH (08:39)
[2022-02-27] MEDS: Clopidogrel Bisulfate 75 MG TAB PO SCH (08:39)
[2022-02-27] MEDS: Indomethacin 75 mg SR Capsule PO SCH ×2 (08:40→21:04)
[2022-02-27] MEDS: Metoprolol Tartrate 25 MG TAB PO SCH ×2 (08:40→21:03)
[2022-02-27] MEDS: Lisinopril 5 MG TAB PO SCH (08:40)
[2022-02-27] MEDS: Tamsulosin HCl 0.4 MG CAP PO SCH ×2 (08:40→21:03)
[2022-02-27] MEDS: Heparin 5,000 UNITS/ML VIAL SC SCH ×3 (08:41→21:04)
[2022-02-27] MEDS ORDERED: Insulin Glargine 30 UNITS/0.3 ML VIAL SC SCH (09:00)
[2022-02-27] MEDS ORDERED: Communication Order-Pharmacy FS SCH (19:30)
[2022-02-27] MEDS: Atorvastatin Calcium 40 MG TAB PO SCH (21:03)
[2022-02-28] MEDS: Aspirin Chewable 81 MG TAB PO SCH (05:03)
[2022-02-28] MEDS: Metoprolol Tartrate 25 MG TAB PO SCH (05:03)
[2022-02-28] MEDS: Famotidine 20 MG TAB PO SCH (05:03)
[2022-02-28] MEDS: Clopidogrel Bisulfate 75 MG TAB PO SCH (05:03)
[2022-02-28] MEDS: Lisinopril 5 MG TAB PO SCH (05:03)
[2022-02-28] MEDS: Nitroglycerin 2% Ointment 1 INCH/1 GM Packet TOP SCH (05:04)
[2022-02-28] MEDS: Tamsulosin HCl 0.4 MG CAP PO SCH (05:10)
[2022-02-28 05:29] LABS: Anion Gap 12 mmol/L (10-20); BUN (Urea Nitrogen) 13 mg/dL (8.4-25.7); Calc. Creatinine Clearance 99 mL/min (70-130); Calcium 8.9 mg/dL (7.8-10.44); Carbon Dioxide 27 mmol/L (23-31); Chloride 106 mmol/L (98-107); Glucose 168 mg/dL (83-110); Potassium 3.9 mmol/L (3.5-5.1); Sodium 141 mmol/L (136-145)
[2022-02-28] MEDS ORDERED: Sodium Chloride 0.9% 1,000 ML IV SCH ×2 (06:00→08:02)
[2022-02-28] MEDS ORDERED: Heparin 10,000 UNITS/ 10 ML VIAL ONE (07:08)
[2022-02-28] MEDS ORDERED: Midazolam HCl 2 mg/2 ml Vial ONE (07:12)
[2022-02-28] MEDS ORDERED: Fentanyl 100 MCG/2 ML VIAL ONE (07:13)
[2022-02-28] MEDS ORDERED: Protamine Sulfate 50 MG/5 ML VIAL ONE (07:42)
[2022-02-28] MEDS ORDERED: Sodium Chloride 0.9% 200 ML IV PRN (08:01)
[2022-02-28] MEDS ORDERED: Nitroglycerin 0.4 MG TAB (25 Tab Bottle) SL PRN (08:01)
[2022-02-28] MEDS ORDERED: Acetaminophen/Codeine 30-300mg Tablet PO PRN ×2 (08:01)
[2022-02-28] MEDS ORDERED: Indomethacin 75 mg SR Capsule PO SCH (09:00)
[2022-02-28] MEDS ORDERED: Iopamidol 370 76% 50 ML VIAL FS ONE (13:25)
[2022-02-28] MEDS ORDERED: Iopamidol 370 76% 100 ML VIAL ONE (13:25)
[2022-02-28 15:51] VITALS: BP 139/69; TEMP 97.7
== END 2022-02-28 16:45 | disposition home or self-care (01) | DRG 287 ==
LOC: ERS 22:42 → 2SW 02-25 01:51 → OBSVTOIN 02-26 17:12
PROVIDERS: ADMIT Family Medicine; ATTEND Internal Medicine
PROC: 4A023N7 Measurement of Cardiac Sampling and Pressure, Left Heart, Percutaneous Approach (ICD-10-PCS; principal; 2022-02-28)
PROC: B2111ZZ Fluoroscopy of Multiple Coronary Arteries using Low Osmolar Contrast (ICD-10-PCS; 2022-02-28)
PROC: B2151ZZ Fluoroscopy of Left Heart using Low Osmolar Contrast (ICD-10-PCS; 2022-02-28)
DX: R07.89 Other chest pain (principal); I25.10 Atherosclerotic heart disease of native coronary artery without angina pectoris; Z20.822 Contact with and (suspected) exposure to COVID-19; I10 Essential (primary) hypertension; E78.5 Hyperlipidemia, unspecified; E11.9 Type 2 diabetes mellitus without complications; K21.9 Gastro-esophageal reflux disease without esophagitis; E78.00 Pure hypercholesterolemia, unspecified; Z79.82 Long term (current) use of aspirin; Z95.5 Presence of coronary angioplasty implant and graft; Z79.899 Other long term (current) drug therapy; Z79.84 Long term (current) use of oral hypoglycemic drugs; Z79.02 Long term (current) use of antithrombotics/antiplatelets; Z79.4 Long term (current) use of insulin; Z90.49 Acquired absence of other specified parts of digestive tract; Z90.79 Acquired absence of other genital organ(s); Z80.1 Family history of malignant neoplasm of trachea, bronchus and lung; Z82.49 Family history of ischemic heart disease and other diseases of the circulatory system; Z83.3 Family history of diabetes mellitus; Z87.891 Personal history of nicotine dependence; Z85.46 Personal history of malignant neoplasm of prostate
CPT/HCPCS: 36415; 36416; 71045; 78452; 80048; 80053; 80061; 83036; 84484; 85025; 85347; 93005; 93017; 93458; 94760; 96372; 99152; A9500; G0378; J1644; J1815; J2250; J2720; J2785; J3010; J7050; Q9967; U0003; U0005

== ENCOUNTER 2022-06-06 19:00 | Outpatient (CLI) | payer MEDICARE | END 2022-06-06 19:01 | disposition home or self-care (01) | LOC: SLEEPLAB 19:00 | PROVIDERS: ATTEND Family Medicine | DX: G47.33 Obstructive sleep apnea (adult) (pediatric) (principal); F51.9 Sleep disorder not due to a substance or known physiological condition, unspecified; G47.10 Hypersomnia, unspecified; G47.61 Periodic limb movement disorder; R53.83 Other fatigue; E11.9 Type 2 diabetes mellitus without complications; E66.9 Obesity, unspecified; R06.83 Snoring; R35.1 Nocturia; I10 Essential (primary) hypertension; I25.10 Atherosclerotic heart disease of native coronary artery without angina pectoris; G47.00 Insomnia, unspecified; Z68.36 Body mass index [BMI] 36.0-36.9, adult | CPT/HCPCS: 95811 ==

== ENCOUNTER 2023-05-27 17:26 | Emergency (ER) | payer MEDICARE, BC ==
[2023-05-27] MEDS ORDERED: Cyclobenzaprine 10 MG TAB ONE ×2 (17:59→18:01)
[2023-05-27] MEDS ORDERED: Ketorolac Tromethamine 30 MG/ML VIAL ONE (18:00)
[2023-05-27 18:24] LABS: Bacteria/HPF None Seen HPF (None Seen); Bilirubin Negative (Negative); Blood, Urine Negative (Negative); CAUTI Indications for Culture Pelvic or flank pain; Clarity Clear (Clear); Glucose, Urine (Dipstick) Normal (Negative); Ketone, Urine Negative (Negative); Leukocyte Negative Leu/uL (Negative); Nitrite Negative (Negative); Protein, Urine (Dipstick) Negative (Neg-Trace); RBC/HPF None Seen HPF (0-3); Specific Gravity, Urine 1.006 (1.002-1.036); Squamous Epithelial None Seen HPF (0-3); Urobilinogen Normal mg/dL (Less than 2); WBC/HPF None Seen HPF (0-3); pH, Urine 5.5 (5.0-9.0)
[2023-05-27 18:26] LABS: Urine Culture Reflex No No
== END 2023-05-27 19:23 | disposition home or self-care (01) ==
LOC: ERS 17:26
DX: M62.830 Muscle spasm of back (principal); M54.6 Pain in thoracic spine; E11.9 Type 2 diabetes mellitus without complications; I10 Essential (primary) hypertension
CPT/HCPCS: 81001; 96372; 99283; J1885

== ENCOUNTER 2023-05-30 09:19 | Outpatient (CLI) | payer MEDICARE, BC | END 2023-05-30 09:20 | disposition home or self-care (01) | LOC: RAD 09:19 | PROVIDERS: ATTEND Family Medicine | DX: M54.6 Pain in thoracic spine (principal); R07.89 Other chest pain; M47.814 Spondylosis without myelopathy or radiculopathy, thoracic region | CPT/HCPCS: 71046; 72072 ==

== ENCOUNTER 2025-05-30 15:44 | Outpatient (CLI) | payer MEDICARE, BC | END 2025-05-30 15:45 | disposition home or self-care (01) | LOC: BICRAD 15:44 | PROVIDERS: ATTEND Family Medicine | DX: M47.22 Other spondylosis with radiculopathy, cervical region (principal) | CPT/HCPCS: 72040 ==